=== PATIENT | female | born 1965 | race Caucasian/White ===

== ENCOUNTER 2022-12-30 06:37 | Day surgery (SDC) | payer BC ==
[2022-12-30] MEDS ORDERED: Ondansetron 4 MG/2 ML SDV IVPUSH ONE (06:38)
[2022-12-30] MEDS ORDERED: Midazolam 1 MG/ML 2 ML SDV IV ONE (06:38)
[2022-12-30] MEDS ORDERED: fentaNYL 100 MCG/2 ML SDV IV ONE (06:38)
[2022-12-30] MEDS ORDERED: Lactated Ringers 1,000 ML IV PRN (06:45)
[2022-12-30] MEDS ORDERED: Sodium Chloride 0.9% 10 ML Syringe FLUSH PRN (06:45)
[2022-12-30] MEDS ORDERED: acetaZOLAMIDE 500 MG Cap.ER PO ONE (08:30)
== END 2022-12-30 09:24 | disposition home or self-care (01) ==
LOC: FB.SDS 06:37
PROVIDERS: ATTEND Ophthalmology
DX: H26.9 Unspecified cataract (principal); I35.8 Other nonrheumatic aortic valve disorders; Q24.8 Other specified congenital malformations of heart; Q21.8 Other congenital malformations of cardiac septa; F17.210 Nicotine dependence, cigarettes, uncomplicated; Z79.899 Other long term (current) drug therapy; Z98.84 Bariatric surgery status; Z98.890 Other specified postprocedural states; Z79.1 Long term (current) use of non-steroidal anti-inflammatories (NSAID)
CPT/HCPCS: 00142; A9270-GY; J2250; J2405; J3010; J7120; V2632

== ENCOUNTER 2023-01-13 06:47 | Day surgery (SDC) | payer BC ==
[~2023-01-13 06:47] MED LIST: Lactated Ringers 1,000 ML IV PRN
[2023-01-13] MEDS ORDERED: Midazolam 1 MG/ML 2 ML SDV IV ONE (06:48)
[2023-01-13] MEDS ORDERED: Sodium Chloride 0.9% 10 ML Syringe IV ONE (06:48)
[2023-01-13] MEDS ORDERED: fentaNYL 100 MCG/2 ML SDV IV ONE (06:48)
[2023-01-13] MEDS ORDERED: Ondansetron 4 MG/2 ML SDV IVPUSH ONE (06:48)
[2023-01-13] MEDS: Sodium Chloride 0.9% 10 ML Syringe FLUSH PRN (07:40)
[2023-01-13] MEDS: acetaZOLAMIDE 500 MG Cap.ER PO ONE (08:41)
== END 2023-01-13 09:30 | disposition home or self-care (01) ==
LOC: FB.SDS 06:47
PROVIDERS: ATTEND Ophthalmology
DX: H26.9 Unspecified cataract (principal); I35.8 Other nonrheumatic aortic valve disorders; Q24.8 Other specified congenital malformations of heart; Q21.8 Other congenital malformations of cardiac septa; R01.1 Cardiac murmur, unspecified; F17.200 Nicotine dependence, unspecified, uncomplicated; Z79.899 Other long term (current) drug therapy; Z98.41 Cataract extraction status, right eye
CPT/HCPCS: 00142; 66984; A9270; J2250; J2405; J3010; J3490